=== PATIENT | female | born 1990 | race American Indian/Alaskan Native ===

== ENCOUNTER 2017-04-10 20:53 | Emergency (ER) | payer OTHER ==
[2017-04-11 01:25] VITALS: BP 124/70
[2017-04-11] MEDS ORDERED: hyperRAB S/D IM ONE (01:26)
[2017-04-11] MEDS ORDERED: RABAVERT RABIES VACCINE(PCEC) IM ONE (01:26)
[2017-04-11] MEDS ORDERED: PERCOCET 5/325 PO ONE (01:26)
[2017-04-11] MEDS ORDERED: NACL 0.9% IR ONE (01:27)
[2017-04-11] MEDS ORDERED: ANCEF IM ONE (01:28)
--- NOTE | 2017-04-11 01:29 | Emergency Department Report ---
ED Animal Bite HPI - General Chief Complaint: Animal Bite Stated Complaint: DOG BITE Time Seen by Provider: 04/11/17 01:04 Source: patient, family Mode of arrival: Ambulatory Limitations: No Limitations - History of Present Illness Initial Comments: And he reported that she was at work today and was bitten by a pit bull on her left foot at about 7 PM. She said animal control notified in patient said that that was pouring tea. Patient reports that her tetanus shot is not up-to-date and the machine silk screen printer of the dog did not know if the dog shots are up-to-date either. Dog did not have it had gone and patient said that animal control notified her to come to the hospital and get tetanus vaccine. Patient reports pain to her left lower leg at 8-10 with laceration. She denies any fever or chills. Denies any numbness or tingling. She says she went outside to let the machine silk screen printer noted that she need to put the dog and the leash and that's when the dog jumped up and bit her. Complaint: animal bite, animal-related injury -: This evening Left: Leg (left leg dog bite with pain) Animal: dog Animal Control Notified: Yes Description: unknown animal, appeared well Mechanism: bite Pain Description: constant Severity scale (0 -10): 8 Context: unprovoked Associated Symptoms: erythema, bleeding. denies: discharge from wound, fever, chills, rash, loss of consciousness, cough, headache, diaphoresis, shortness of breath Treatments Prior to Arrival: wound dressing(s), pressure - Related Data Patient Tetanus UTD: No Previous Rx's Medication Instructions Recorded Last Taken Type Amoxicillin/K Clav Tab [Augmentin 1 tab PO Q12HR #20 tab 04/11/17 Unknown Rx 875 mg] Ibuprofen [Motrin] 600 mg PO Q8H PRN #15 tablet 04/11/17 Unknown Rx Allergies Allergy/AdvReac Type Severity Reaction Status Date / Time No Known Allergies Allergy Verified 04/10/17 21:39 ED Review of Systems ROS: Stated complaint: DOG BITE Other details as noted in HPI Comment: All other systems reviewed and negative Constitutional: denies: chills, fever Eyes: denies: eye discharge ENT: denies: throat pain Respiratory: no symptoms reported Cardiovascular: denies: chest pain, palpitations, edema, syncope Gastrointestinal: denies: abdominal pain, nausea, vomiting Musculoskeletal: arthralgia. denies: back pain, joint swelling, myalgia Skin: other (dog bite) Neurological: denies: headache, weakness, numbness, paresthesias, confusion, abnormal gait, vertigo ED Past Medical Hx - Past Medical History Previous Medical History?: No - Surgical History Past Surgical History?: No - Family History Family history: no significant - Social History Smoking Status: Never Smoker Substance Use Type: Alcohol - Medications Home Medications: Home Medications Medication Instructions Recorded Confirmed Last Taken Type Amoxicillin/K Clav Tab [Augmentin 1 tab PO Q12HR #20 tab 04/11/17 Unknown Rx 875 mg] Ibuprofen [Motrin] 600 mg PO Q8H PRN #15 tablet 04/11/17 Unknown Rx ED Physical Exam - General Limitations: No Limitations General appearance: alert, in no apparent distress - Head Head exam: Present: atraumatic, normocephalic, normal inspection - Eye Eye exam: Present: normal appearance, PERRL, EOMI. Absent: periorbital swelling , periorbital tenderness Pupils: Present: normal accommodation - ENT ENT exam: Present: normal exam, normal orophraynx - Neck Neck exam: Present: normal inspection, full ROM. Absent: tenderness, meningismus, lymphadenopathy - Expanded Neck Exam Expanded Neck exam: Absent: tenderness, midline deformity, anterior neck swelling, tracheal deviation - Respiratory Respiratory exam: Present: normal lung sounds bilaterally. Absent: respiratory distress, chest wall tenderness - Cardiovascular Cardiovascular Exam: Present: regular rate, normal rhythm, normal heart sounds - GI/Abdominal GI/Abdominal exam: Present: soft, normal bowel sounds. Absent: distended, tenderness, guarding, rebound, rigid - Extremities Exam Extremities exam: Present: normal inspection, full ROM, tenderness (tenderness to palpate around dog bite. Distally left leg), normal capillary refill, other (no clubbing cyanosis or edema noted to extremities. +2 pedal pulses. No neurovascular compromise noted.). Absent: pedal edema, joint swelling, calf tenderness - Back Exam Back exam: Present: normal inspection, full ROM - Neurological Exam Neurological exam: Present: alert, oriented X3, normal gait, reflexes normal. Absent: motor sensory deficit - Psychiatric Psychiatric exam: Present: normal affect, normal mood - Skin Skin exam: Present: warm, dry, normal color, other (laceration) - Expanded Skin Exam Expanded Type of lesion: Present: laceration, bite/sting (distal leg, outer) Distribution of rash: LLE (left leg distally) Description of rash: Present: size (0.5 cm), tenderness. Absent: erythematous, swelling, discharge, fluctuant, indurated ED Course Vital Signs 04/10/17 04/11/17 21:39 01:24 Temperature 98.1 F 98.2 F Pulse Rate 98 H 72 Respiratory 20 20 Rate Blood Pressure 159/108 Blood Pressure 124/70 [Left] O2 Sat by Pulse 99 100 Oximetry - Reevaluation(s) Reevaluation #1: 04/11/17 03:30 Patient given tetanus vaccine while in emergency room. Also given Ancef 1 g empirically status post dog bite. Patient was given Percocet 5/325 mg 2 tablets emergency room for pain. Area around wound cleansed with iodine and normal saline and irrigated with 500 mL of normal saline. No foreign body noted to wound area. Patient given rabies immunoglobulin around the wound and extra injection given in right buttocks. Rabies vaccine given to the deltoid muscle by medical personnel. Tolerated all shots well without any adverse reaction. - Laceration /Wound Repair Left Lateral Distal Leg Wound Location: lower extremity (left distal outer leg) Wound Length (cm): 0 (0.5 cm) Wound's Depth, Shape: superficial (subcutaneous), linear Wound Explored: clean Irrigated w/ Saline (ccs): 250 Betadine Prep?: Yes Volume Anesthetic (ccs): 0 Wound Debrided: extensive Wound Repaired With: Steri-strips (loosely applied to dog bite area) Number of Sutures: 3 Layer Closure?: No Sterile Dressing Applied?: Yes (no bony involvement) Critical care attestation.: If time is entered above; I have spent that time in minutes in the direct care of this critically ill patient, excluding procedure time. ED Disposition Clinical Impression: Dog bite of left lower leg Qualifiers: Encounter type: initial encounter Qualified Code(s): S81.852A - Open bite, left lower leg, initial encounter; W54.0XXA - Bitten by dog, initial encounter Laceration of left leg Qualifiers: Encounter type: initial encounter Qualified Code(s): S81.812A - Laceration without foreign body, left lower leg, initial encounter Disposition: DISCHARGED TO HOME OR SELFCARE Is pt being admited?: No Does the pt Need Aspirin: No Condition: Stable Instructions: Animal Bite (ED), Laceration (ED), Skin Adhesive Care (ED) Additional Instructions: Please return to the hospital to get additional rabies vaccination series. Here R the dates that he should return. April 14, 2017, April 18, 2017 and April 25, 2017. You already received your rabies immunoglobulin and your first dose of rabies vaccine in the emergency room. Since he do not have a primary care physician he can follow up with [facility] in 5 days for dog bite. If he notices any signs of infection such as fever, increased swelling and redness around site, swelling and it is increasing to leg. Increasing pain that is not relieved by pain medication please return to the emergency room CLAUDE. Please take antibiotic as prescribed at this antibiotic is given specifically for dog bite. Take Motrin as needed for pain. Prescriptions: Amoxicillin/K Clav Tab [Augmentin 875 mg] 1 tab PO Q12HR #20 tab Ibuprofen [Motrin] 600 mg PO Q8H PRN #15 tablet PRN Reason: Pain Referrals: [facility] [Outside] - 04/15/17 Forms: Accompanied Note, Work/School Release Form(ED) ED Medical Decision Making - Medical Decision Making ED course: She'll with dog bite to distal left outer leg. 0.5 cm laceration to subcutaneous layer without any bony involvement. Procedure note for detail. Patient given rabies immunoglobulin 2870 units. 16 mL injected around the wound and 3 mL injected and right buttocks. She also given 2.5 units of regular preferred given by nurse and upper extremity. Patient given tetanus vaccine 0.5 mL injection. He is given Percocet 5/325 mg 2 tablets emergency room for pain. I instructed the patient's on rabies series vaccine and when she needs to come back to get additional vaccine. He was understanding of discharge instruction and treatment plan. I also instructed her on signs and symptoms of infection and to return if she has any of these. Patient discharged home with prescription for Motrin and Augmentin and to follow-up at [facility] and 5 days as she does not have a primary care physician status post dog bite. Discharge Home with her family member.
== END 2017-04-11 04:08 | disposition home or self-care (01) ==
LOC: ED 20:53
DX: S81.852A Open bite, left lower leg, initial encounter (principal); S81.812A Laceration without foreign body, left lower leg, initial encounter; W54.0XXA Bitten by dog, initial encounter; Y93.9 Activity, unspecified; Y92.9 Unspecified place or not applicable; Y99.9 Unspecified external cause status
CPT/HCPCS: 90375; 90471; 90675; 96372; 99283; J0690

== ENCOUNTER 2017-04-14 12:48 | Emergency (ER) | payer OTHER ==
[2017-04-14 13:04] VITALS: BP 141/101
[2017-04-14] MEDS ORDERED: RABAVERT RABIES VACCINE(PCEC) IM ONE (13:05)
--- NOTE | 2017-04-14 14:28 | Emergency Department Report ---
Entered by RENE POLO, acting as scribe for FINN LOWE PA. HPI - General Chief Complaint: Medical Clearance Time Seen by Provider: 04/14/17 14:04 - HPI HPI: 26 y/o female with no significant PMHx c/o a rabies shot. Patient was seen in this ED on 04/11/2017 secondary to a dog bite on left distal lower leg. Patient was given rabies immunoglobulin around the wound and extra injection given in right buttocks. The rabies vaccine was given to the deltoid muscle by medical personnel. Patient was given a prescription for Motrin and Augmentin. Denies fever, chills, numbness, tingling, nausea, and vomiting. LMP 04/11/2017. NKDA. ED Past Medical Hx - Past Medical History Previous Medical History?: Yes Additional medical history: dog bite to left leg - Surgical History Past Surgical History?: Yes Additional Surgical History: D&C, 1 miscarriage - Social History Smoking Status: Never Smoker Substance Use Type: Alcohol, Non Opiate Pain, Prescribed - Medications Home Medications: Home Medications Medication Instructions Recorded Confirmed Last Taken Type Amoxicillin/K Clav Tab [Augmentin 1 tab PO Q12HR #20 tab 04/11/17 Unknown Rx 875 mg] Ibuprofen [Motrin] 600 mg PO Q8H PRN #15 tablet 04/11/17 Unknown Rx ED Review of Systems ROS: Stated complaint: RABIE SHOT Other details as noted in HPI Comment: All other systems reviewed and negative Constitutional: no symptoms reported. denies: chills, fever Eyes: denies: eye pain, eye discharge, vision change ENT: denies: ear pain, throat pain Respiratory: denies: cough, shortness of breath, wheezing Cardiovascular: denies: chest pain, palpitations Endocrine: no symptoms reported Gastrointestinal: denies: abdominal pain, nausea, diarrhea Genitourinary: denies: urgency, dysuria, discharge Musculoskeletal: denies: back pain, joint swelling, arthralgia Skin: denies: rash, lesions Neurological: denies: headache, weakness, paresthesias, other (tingling) Psychiatric: denies: anxiety, depression Hematological/Lymphatic: denies: easy bleeding, easy bruising Physical Exam - Physical Exam Vital Signs: Vital Signs 04/14/17 13:00 Temperature 98.1 F Pulse Rate 78 Respiratory 20 Rate Blood Pressure 141/101 O2 Sat by Pulse 100 Oximetry General: GENERAL: Patient is alert and oriented x 3. No apparent distress, normal gait, atraumatic. Physical Exam: HEAD: Head is normocephalic and atraumatic. EYES: Extraocular movements are intact. Pupils are equal, round, and reactive to light and accommodation. EARS: Symmetrical, atraumatic, non tender, ear canal clear with moderate cerumen , tympanic membrane non inflamed. Gross auditory nml bilaterally. NOSE: Nose symmetrical, nontender. Nares appeared normal. MOUTH:Mouth is well hydrated and without lesions. Mucous membranes are moist. Uvula midline. Tongue not elevated. Posterior pharynx clear, no exudate or lesions. Tonsils are not erythematous or swollen. Patent airway. NECK: Supple. Non edematous, no carotid bruits. No lymphadenopathy or thyromegaly. LUNGS: Symmetrical with respiration. No wheezing, rales or crackles, CTAB. HEART: Regular rate and rhythm with normal S1/S2 present. No murmurs, rubs, or gallops. ABDOMEN: Soft, nondistended. Nontender to palpation on all quadrants. No organomegaly was noted. Positive bowel sounds. EXTREMITIES/MUSCULOSKELETAL: No cyanosis, clubbing, rash, lesions or edema. Full ROM bilaterally. UE/LE Pulses 2+ bilaterally. LE and UE 5+ strength bilaterally SKIN: Warm and dry. No lesions, ulceration or induration present NEUROLOGIC: No focal deficit., Cranial nerves II - XII are grossly intact. No loss of sensation. No facial droop. PSYCHIATRIC: Mood is congruent with affect. ED Course Vital Signs 04/14/17 13:00 Temperature 98.1 F Pulse Rate 78 Respiratory 20 Rate Blood Pressure 141/101 O2 Sat by Pulse 100 Oximetry ED Medical Decision Making - Medical Decision Making Patient was evaluated in fast track area of ED by this provider. Patient presented request for rabies shot for 3 days. In the ED, patient will be given her second injection of rabies immune globulin . Patient is in no acute distress at this time and will be discharged home. Patient is instructed to follow-up with third injection. Please follow up for your vaccine on April 18, and April 25. Patient verbalized understanding. She is encouraged to return to the emergency room for any worsening symptoms. Critical care attestation.: If time is entered above; I have spent that time in minutes in the direct care of this critically ill patient, excluding procedure time. ED Disposition Clinical Impression: Vaccine counseling Disposition: DISCHARGED TO HOME OR SELFCARE Is pt being admited?: No Does the pt Need Aspirin: No Condition: Stable Additional Instructions: Please return on April 18 and April [id number] for next rabies vaccines. This documentation as recorded by the CHRIST stevenson JASMINE,accurately reflects the service I personally performed and the decisions made by , FINN LOWE PA.
== END 2017-04-14 19:00 | disposition home or self-care (01) ==
LOC: ED 12:48
DX: Z23 Encounter for immunization (principal)
CPT/HCPCS: 90675; 96372

== ENCOUNTER 2017-04-18 12:04 | Emergency (ER) | payer SELFPAY ==
[2017-04-18 12:21] VITALS: BP 135/90
[2017-04-18] MEDS ORDERED: RABAVERT RABIES VACCINE(PCEC) IM ONE (12:45)
--- NOTE | 2017-04-18 13:25 | Emergency Department Report ---
ED Recheck HPI - General Chief Complaint: Recheck/Abnormal Lab/Rx Stated Complaint: RABIES SHOT Time Seen by Provider: 04/18/17 12:29 Source: patient Mode of arrival: Ambulatory Limitations: No Limitations - History of Present Illness Initial Comments: Patient comes into the ER today with continued complaints of left foot pain following a dog bite approximately 8 days ago. Patient is also here requesting her third rabies vaccination. Patient does state that over this past week her foot continues to swell and is painful with what she describes as locking up of her second third and fourth toes. Patient states that the pain is worse with ambulation and flexing of her toes. Patient denies any new injury. Patient denies any redness or streaking, fever or loss of sensation to area. MD Complaint: wound re-check - Related Data Previous Rx's Medication Instructions Recorded Last Taken Type Amoxicillin/K Clav Tab [Augmentin 1 tab PO Q12HR #20 tab 04/11/17 Unknown Rx 875MG TAB] Naproxen [Naprosyn TAB] 500 mg PO BID #20 tablet 04/18/17 Unknown Rx traMADol [Ultram] 50 mg PO Q4HR PRN #30 tablet 04/18/17 Unknown Rx Allergies Allergy/AdvReac Type Severity Reaction Status Date / Time No Known Allergies Allergy Verified 04/18/17 12:18 ED Review of Systems ROS: Stated complaint: RABIES SHOT Other details as noted in HPI Constitutional: denies: chills, fever Eyes: denies: eye pain, eye discharge, vision change ENT: denies: ear pain, throat pain Respiratory: denies: cough, shortness of breath, wheezing Cardiovascular: denies: chest pain, palpitations Endocrine: no symptoms reported Gastrointestinal: denies: abdominal pain, nausea, diarrhea Genitourinary: denies: urgency, dysuria, discharge Musculoskeletal: joint swelling, arthralgia, other. denies: back pain Skin: denies: rash, lesions Neurological: denies: headache, weakness, paresthesias Psychiatric: denies: anxiety, depression Hematological/Lymphatic: denies: easy bleeding, easy bruising ED Past Medical Hx - Past Medical History Additional medical history: dog bite to left leg. OBESITY - Surgical History Additional Surgical History: D&C, 1 miscarriage - Social History Smoking Status: Former Smoker Substance Use Type: Alcohol - Medications Home Medications: Home Medications Medication Instructions Recorded Confirmed Last Taken Type Amoxicillin/K Clav Tab [Augmentin 1 tab PO Q12HR #20 tab 04/11/17 Unknown Rx 875MG TAB] Naproxen [Naprosyn TAB] 500 mg PO BID #20 tablet 04/18/17 Unknown Rx traMADol [Ultram] 50 mg PO Q4HR PRN #30 tablet 04/18/17 Unknown Rx ED Physical Exam - General Limitations: No Limitations General appearance: alert, in no apparent distress - Head Head exam: Present: atraumatic, normocephalic - Eye Eye exam: Present: normal appearance - ENT ENT exam: Present: mucous membranes moist - Neck Neck exam: Present: normal inspection - Respiratory Respiratory exam: Present: normal lung sounds bilaterally. Absent: respiratory distress - Cardiovascular Cardiovascular Exam: Present: regular rate, normal rhythm. Absent: systolic murmur, diastolic murmur, rubs, gallop - GI/Abdominal GI/Abdominal exam: Present: soft, normal bowel sounds - Extremities Exam Extremities exam: Present: normal inspection, tenderness, normal capillary refill, joint swelling, other (left foot tenderness and swelling noted on examination. Puncture wounds and abrasions are healing with scabbed over tissue. No signs of infection noted on exam. Patient does have dorsal foot tenderness noted with plantar flexion of toes 2 through 4.). Absent: pedal edema, calf tenderness - Back Exam Back exam: Present: normal inspection - Neurological Exam Neurological exam: Present: alert, oriented X3, CN II-XII intact, reflexes normal. Absent: motor sensory deficit - Psychiatric Psychiatric exam: Present: normal affect, normal mood - Skin Skin exam: Present: warm, dry, intact, normal color. Absent: rash ED Course Vital Signs 04/18/17 12:19 Temperature 98.0 F Pulse Rate 70 Respiratory 18 Rate Blood Pressure 135/90 O2 Sat by Pulse 98 Oximetry ED Recheck MDM - Medical Decision Making Patient has continued pain and swelling noted to area of dog bite. Based on continued history symptoms and patient noting that she never had x-ray of her foot, I obtained x-ray images of her left foot to evaluate bone pathology. I suspect that patient's symptoms are most likely related to injury of the underlying soft tissue such as tendons or ligaments. Patient placed in postop surgical shoe here in the ER and patient was given a third dose of rabies vaccination. Patient also states that she has started back working and that there is times at the end of her shift when her foot is cramping up and hurting so much that she is having to hop around on 1 foot. Because of this patient was given an instructed on use of crutches here in the ER today. I have instructed patient that in one week she needs to get the fourth dose of her rabies vaccination. The wound itself does not show any signs of infection at this time. She is to finish taking the previously prescribed antibiotics. X- ray results reviewed and discussed with the patient room. No acute bone pathology noted on images. Patient is in agreement with this treatment plan. Critical care attestation.: If time is entered above; I have spent that time in minutes in the direct care of this critically ill patient, excluding procedure time. ED Disposition Clinical Impression: Need for rabies vaccination, Dog bite of extremity, Left foot pain Disposition: DISCHARGED TO HOME OR SELFCARE Is pt being admited?: No Does the pt Need Aspirin: No Condition: Good Instructions: Animal Bite (ED), Tendinitis (ED), Crutch Instructions (ED) Prescriptions: Naproxen [Naprosyn TAB] 500 mg PO BID #20 tablet traMADol [Ultram] 50 mg PO Q4HR PRN #30 tablet PRN Reason: Pain Referrals: [facility], Emergency Department [Other] - 04/25/17 (Return for 4th rabbies vaccination) Forms: Work/School Release Form(ED) Time of Disposition: 13:58
--- NOTE | 2017-04-18 14:40 | XRay Report ---
LEFT FOOT, 3 views: History: Pain. The bony architecture is intact. Bony alignment is normal. The joint spaces appear preserved. There is mild soft tissue swelling of the distal foot. IMPRESSION: Soft tissue swelling.
== END 2017-04-18 15:12 | disposition home or self-care (01) ==
LOC: ED 12:04
DX: Z23 Encounter for immunization (principal); S91.352D Open bite, left foot, subsequent encounter; Z87.891 Personal history of nicotine dependence
CPT/HCPCS: 90675; 99283

== ENCOUNTER 2017-04-25 11:28 | Emergency (ER) | payer SELFPAY ==
[2017-04-25 11:33] VITALS: BP 142/93
[2017-04-25] MEDS ORDERED: RABAVERT RABIES VACCINE(PCEC) IM ONE (12:18)
--- NOTE | 2017-04-25 12:18 | Emergency Department Report ---
ED Recheck HPI - General Chief Complaint: Recheck/Abnormal Lab/Rx Stated Complaint: RABIES SHOT Time Seen by Provider: 04/25/17 12:17 Source: patient Mode of arrival: Ambulatory Limitations: No Limitations - History of Present Illness Initial Comments: Patient hair states that she is here for her last rabies injection. She was here on 05-03 for series of rabies vaccine she got on April 18, 2017 and now she is here for her last shot. She denies any new problem or any problems with injection. Denies any pain. Complaint: other (here for rabies vaccine) Initial Visit For: animal bite Returns Today for: rabies shot Symptoms Since Prior Visit: no new symptoms Context: planned re-check Associated Symptoms: none Treatments Prior to Arrival: Given Antibiotics on - Related Data Previous Rx's Medication Instructions Recorded Last Taken Type Amoxicillin/K Clav Tab [Augmentin 1 tab PO Q12HR #20 tab 04/11/17 Unknown Rx 875MG TAB] Naproxen [Naprosyn TAB] 500 mg PO BID #20 tablet 04/18/17 Unknown Rx traMADol [Ultram] 50 mg PO Q4HR PRN #30 tablet 04/18/17 Unknown Rx Allergies Allergy/AdvReac Type Severity Reaction Status Date / Time No Known Allergies Allergy Verified 04/18/17 12:18 ED Review of Systems ROS: Stated complaint: RABIES SHOT Other details as noted in HPI Comment: All other systems reviewed and negative Constitutional: denies: chills, fever ENT: denies: ear pain, throat pain, congestion Respiratory: no symptoms reported Cardiovascular: denies: chest pain, palpitations, edema, syncope Gastrointestinal: denies: abdominal pain, nausea, vomiting Musculoskeletal: denies: back pain, arthralgia Skin: denies: rash Neurological: denies: headache ED Past Medical Hx - Past Medical History Previous Medical History?: Yes Additional medical history: dog bite to left leg. OBESITY - Surgical History Past Surgical History?: Yes Additional Surgical History: D&C, 1 miscarriage - Family History Family history: no significant - Social History Smoking Status: Current Every Day Smoker Substance Use Type: Alcohol - Medications Home Medications: Home Medications Medication Instructions Recorded Confirmed Last Taken Type Amoxicillin/K Clav Tab [Augmentin 1 tab PO Q12HR #20 tab 04/11/17 Unknown Rx 875MG TAB] Naproxen [Naprosyn TAB] 500 mg PO BID #20 tablet 04/18/17 Unknown Rx traMADol [Ultram] 50 mg PO Q4HR PRN #30 tablet 04/18/17 Unknown Rx ED Physical Exam - General Limitations: No Limitations General appearance: alert, in no apparent distress - Head Head exam: Present: atraumatic, normocephalic, normal inspection - Eye Eye exam: Present: normal appearance, PERRL, EOMI. Absent: periorbital swelling , periorbital tenderness Pupils: Present: normal accommodation - ENT ENT exam: Present: normal exam, normal orophraynx, mucous membranes moist, TM's normal bilaterally, normal external ear exam - Neck Neck exam: Present: normal inspection, full ROM. Absent: tenderness, meningismus, lymphadenopathy - Respiratory Respiratory exam: Present: normal lung sounds bilaterally. Absent: respiratory distress - Cardiovascular Cardiovascular Exam: Present: regular rate, normal rhythm - GI/Abdominal GI/Abdominal exam: Present: soft, normal bowel sounds. Absent: distended, tenderness - Extremities Exam Extremities exam: Present: normal inspection, full ROM, normal capillary refill. Absent: tenderness, pedal edema, joint swelling, calf tenderness - Back Exam Back exam: Present: normal inspection, full ROM - Neurological Exam Neurological exam: Present: alert, oriented X3, normal gait - Psychiatric Psychiatric exam: Present: normal affect, normal mood - Skin Skin exam: Present: warm, dry, normal color ED Course Vital Signs 04/25/17 11:30 Temperature 98.0 F Pulse Rate 85 Respiratory 18 Rate Blood Pressure 142/93 O2 Sat by Pulse 99 Oximetry - Reevaluation(s) Reevaluation #1: 04/25/17 13:19 Patient received RabAvert vaccine 0.5 ml injection without any adverse reaction. ED Recheck MDM - Medical Decision Making ED course: Pt here for last series and rabies vaccination. She received RabAvert 0.5 cc in emergency room without any adverse reaction. Patient discharged home in stable condition. She has good wound healing and I discussed with her that she needs to follow-up with primary care physician as needed. Critical care attestation.: If time is entered above; I have spent that time in minutes in the direct care of this critically ill patient, excluding procedure time. ED Disposition Clinical Impression: Rabies, need for prophylactic vaccination against Disposition: DC-01 TO HOME OR SELFCARE Is pt being admited?: No Does the pt Need Aspirin: No Condition: Stable Instructions: Rabies Vaccine (Injection) Referrals: [facility] [Outside] - 3-5 Days Forms: Work/School Release Form(ED)
== END 2017-04-25 13:29 | disposition home or self-care (01) ==
LOC: ED 11:28
DX: Z23 Encounter for immunization (principal); F17.200 Nicotine dependence, unspecified, uncomplicated
CPT/HCPCS: 90675; 99282